=== PATIENT | female | born 1985 | race Caucasian/White ===

== ENCOUNTER 2016-08-31 19:47 | Emergency (ER) | payer SELFPAY ==
[~2016-08-31] VITALS: Ht 160 cm; Wt 59.6 kg
[2016-08-31 21:59] VITALS: BP 130/87
== END 2016-08-31 22:00 | disposition home or self-care (01) ==
LOC: ED 19:47
DX: M25.571 Pain in right ankle and joints of right foot (principal); R22.41 Localized swelling, mass and lump, right lower limb